=== PATIENT | female | born 1985 | race Caucasian/White ===

== ENCOUNTER 2018-12-27 11:02 | Emergency (ER) | payer MEDICAID ==
[~2018-12-27] VITALS: Ht 160 cm; Wt 60.0 kg
[~2018-12-27 11:02] MED LIST: CLIN-96 PO; CLIN150C8 PO; CLON-529 PO; DIAZ10TA PO; VAL5T PO
[2018-12-27] MEDS ORDERED: methylnaltrexone br 12mg/0.6ml inj***SubQ only SQ ONE (13:25)
[2018-12-27] MEDS ORDERED: magnesium citrate 296ml oral solution PO ONE (13:25)
[2018-12-27] MEDS ORDERED: normal saline 1000ML IV soln IVB ONE (13:25)
[2018-12-27] MEDS ORDERED: bisacodyl 10mg suppository rectal RC ONE (13:25)
[2018-12-27 13:49] LABS: URINE HCG NEGATIVE (NEG)
[2018-12-27 14:20] LABS: ALANINE AMINOTRANSFERASE 53 U/L (12-78); ALBUMIN 3.6 G/DL (3.4-5.0); ALKALINE PHOSPHATASE 51 IU/L (46-116); ANION GAP 6 (8-16); BILIRUBIN,TOTAL 0.3 MG/DL (0.1-1.0); BLOOD UREA NITROGEN 11 MG/DL (7-18); BUN/CREATININE RATIO 13.9 (6.6-38.0); CALCIUM 9.2 MG/DL (8.5-10.1); CHLORIDE 104 MMOL/L (99-107); CREATININE 0.79 MG/DL (0.40-0.90); GLUCOSE 79 MG/DL (70-104); SODIUM 139 MMOL/L (135-145); TOTAL CARBON DIOXIDE 28.9 MMOL/L (24-32); TOTAL PROTEIN 7.1 G/DL (6.4-8.2); eGFR 83 ML/MIN
[2018-12-27 14:21] LABS: ASPARTATE AMINO TRANSFERASE 48 U/L (10-37); POTASSIUM 4.6 MMOL/L (3.5-5.1)
[2018-12-27 15:19] VITALS: BP 94/56
[2018-12-27 15:37] LABS: BASOPHILS % (AUTO) 0.3 % (0-1); EOSINOPHILS # (AUTO) 0.3 X10'3 (0-0.9); EOSINOPHILS % (AUTO) 3.5 % (0-6); HEMATOCRIT 37.7 % (35.0-45.0); HEMOGLOBIN 12.5 g/dl (12.0-16.0); LYMPHOCYTES # (AUTO) 2.5 X10'3 (1.1-4.8); LYMPHOCYTES % (AUTO) 33.3 % (21-51); MEAN CORPUSCULAR HEMOGLOBIN 29.9 PG (27.0-31.0); MEAN CORPUSCULAR HGB CONC 33.1 g/dL (33.0-36.5); MEAN CORPUSCULAR VOLUME 90.4 FL (78-98); MEAN PLATELET VOLUME 9.4 FL (7.4-10.4); MONOCYTES # (AUTO) 0.6 X10'3 (0-0.9); MONOCYTES % (AUTO) 7.6 % (2-12); NEUTROPHILS # (AUTO) 4.2 X10'3 (1.8-7.7); NEUTROPHILS % (AUTO) 55.3 % (42-75); PLATELET COUNT 183 X10'3 (140-440); RED BLOOD COUNT 4.17 X10'6 (4.20-5.60); RED CELL DISTRIBUTION WIDTH 13.1 % (11.5-14.5); WHITE BLOOD COUNT 7.5 X10'3 (4.5-11.0)
[2018-12-27] MEDS ORDERED: ondansetron 4mg rapidly disintigrating tab PO ONE (17:00)
== END 2018-12-27 17:58 | disposition home or self-care (01) ==
LOC: ER 11:03
DX: K59.00 Constipation, unspecified (principal); R10.84 Generalized abdominal pain; F11.90 Opioid use, unspecified, uncomplicated; Z87.442 Personal history of urinary calculi; Z56.0 Unemployment, unspecified; Z91.013 Allergy to seafood; Z88.2 Allergy status to sulfonamides; Z88.8 Allergy status to other drugs, medicaments and biological substances; Z79.899 Other long term (current) drug therapy
CPT/HCPCS: 36415; 74018; 80053; 81025; 85025; 96360; 96372; 99284; J7030

== ENCOUNTER 2019-06-11 13:13 | Emergency (ER) | payer MEDICAID ==
[~2019-06-11] VITALS: Ht 160 cm; Wt 54.5 kg
[~2019-06-11 13:13] MED LIST changes: +LIDOcaine 1% W/epiNEPHrine 1:100,000 20ml vial ONE
[2019-06-11 13:52] VITALS: BP 126/88
[2019-06-11] MEDS ORDERED: CLIN150C8 PO (14:39)
== END 2019-06-11 15:08 | disposition home or self-care (01) ==
LOC: ER 13:14
DX: S60.111A Contusion of right thumb with damage to nail, initial encounter (principal); L03.011 Cellulitis of right finger; F41.9 Anxiety disorder, unspecified; F32.9 Major depressive disorder, single episode, unspecified; F10.99 Alcohol use, unspecified with unspecified alcohol-induced disorder; F11.90 Opioid use, unspecified, uncomplicated; Z87.442 Personal history of urinary calculi; Z56.0 Unemployment, unspecified; Z88.2 Allergy status to sulfonamides; Z91.013 Allergy to seafood; Z88.8 Allergy status to other drugs, medicaments and biological substances; Z79.899 Other long term (current) drug therapy; X58.XXXA Exposure to other specified factors, initial encounter; Y93.89 Activity, other specified; Y92.89 Other specified places as the place of occurrence of the external cause; Y99.8 Other external cause status; Y90.9 Presence of alcohol in blood, level not specified
CPT/HCPCS: 11740; 99283

== ENCOUNTER → 2020-10-10 | Emergency (ER) | payer MEDICAID ==
[~2020-10-10] VITALS: Ht 160 cm; Wt 52.5 kg
[~2020-10-10] MED LIST changes: -CLIN-96 PO; +CLIN-97 PO; +HYDR-4353 PO; +HYDROcodone/acetaminophen 10/325mg tab PO ONE; +IBUP-1986 PO; -LIDOcaine 1% W/epiNEPHrine 1:100,000 20ml vial ONE; +LIDOcaine 1% W/epiNEPHrine 1:100,000 20ml vial SQ ONE; +ketorolac trometh inj. 60 MG/2 ML VIAL IM ONE
--- NOTE | 2020-10-10 19:42 | NUR ---
Dr. Martin at bedside, removed C collar
[2020-10-10 21:12] VITALS: BP 112/70
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
== END | disposition home or self-care (01) ==
LOC: ER 23:37
DX: S02.602A Fracture of unspecified part of body of left mandible, initial encounter for closed fracture (principal); S02.601A Fracture of unspecified part of body of right mandible, initial encounter for closed fracture; S01.81XA Laceration without foreign body of other part of head, initial encounter; F11.90 Opioid use, unspecified, uncomplicated; Z87.442 Personal history of urinary calculi; Z87.11 Personal history of peptic ulcer disease; Z72.89 Other problems related to lifestyle; Z56.0 Unemployment, unspecified; Z88.2 Allergy status to sulfonamides; Z88.8 Allergy status to other drugs, medicaments and biological substances; Z91.013 Allergy to seafood; Z79.2 Long term (current) use of antibiotics; Z79.899 Other long term (current) drug therapy; W01.0XXA Fall on same level from slipping, tripping and stumbling without subsequent striking against object, initial encounter; Z91.81 History of falling; Y93.01 Activity, walking, marching and hiking; Y93.89 Activity, other specified; Y92.89 Other specified places as the place of occurrence of the external cause; Y99.8 Other external cause status
CPT/HCPCS: 12011; 70486; 96372; 99284; J1885

== ENCOUNTER 2021-09-13 17:14 | Emergency (ER) | payer MEDICAID ==
[~2021-09-13 17:14] MED LIST changes: +DIAZ5TAB22 PO; -HYDR-4353 PO; -HYDROcodone/acetaminophen 10/325mg tab PO ONE; -LIDOcaine 1% W/epiNEPHrine 1:100,000 20ml vial SQ ONE; -VAL5T PO; -ketorolac trometh inj. 60 MG/2 ML VIAL IM ONE
== END 2021-09-13 19:49 | disposition left against medical advice (07) ==
LOC: ER 17:14
DX: R11.10 Vomiting, unspecified (principal); K59.00 Constipation, unspecified; Z53.21 Procedure and treatment not carried out due to patient leaving prior to being seen by health care provider

== ENCOUNTER 2022-10-07 06:58 | Emergency (ER) | payer MEDICAID ==
[~2022-10-07] VITALS: Ht 160 cm; Wt 50.0 kg
[2022-10-07 08:04] LABS: CLARITY,URINE SLIGHTLY CLOUDY (Clear); COLOR,URINE YELLOW (Yellow); GLUCOSE, URINE NEGATIVE (Neg); KETONES,URINE NEGATIVE (Neg); LEUKOCYTE ESTERASE ,URINE LARGE (Neg); NITRITES, URINE POSITIVE (Neg); OCCULT BLOOD,URINE SMALL (Neg); PROTEIN,URINE NEGATIVE (Neg)
[2022-10-07 08:05] LABS: UA COLLECTION TYPE CLN CATCH MIDSTREAM; URINE HCG NEGATIVE (NEG)
[2022-10-07 08:11] LABS: MUCUS STRANDS FEW /LPF (Neg); SQUAMOUS EPITHELIAL CELL,UR MODERATE /LPF (FEW)
[2022-10-07 08:13] LABS: WBC CLUMPS,URINE MODERATE /HPF (NEGATIVE); WBC,URINE TNTC /HPF (0-4)
[2022-10-07 08:14] LABS: BACTERIA,URINE 3+ /HPF (Neg)
[2022-10-07] MEDS ORDERED: cephalexin 500mg capsule PO ONE (09:25)
[2022-10-07] MEDS ORDERED: CEPH-585 PO (09:33)
[2022-10-07 09:39] VITALS: BP 127/83
== END 2022-10-07 09:45 | disposition home or self-care (01) ==
LOC: ER 06:58
DX: F31.9 Bipolar disorder, unspecified (principal); N39.0 Urinary tract infection, site not specified; Z56.0 Unemployment, unspecified; Z87.442 Personal history of urinary calculi; Z91.013 Allergy to seafood; Z88.2 Allergy status to sulfonamides; Z88.5 Allergy status to narcotic agent; Z79.899 Other long term (current) drug therapy; Z79.1 Long term (current) use of non-steroidal anti-inflammatories (NSAID); Z79.2 Long term (current) use of antibiotics
CPT/HCPCS: 81001; 81025; 87077; 87088; 87186; 99283

== ENCOUNTER 2023-02-16 06:43 | Emergency (ER) | payer MEDICAID ==
[~2023-02-16] VITALS: Ht 160 cm; Wt 52.0 kg
[~2023-02-16 06:43] MED LIST changes: +CEPH-585 PO
[2023-02-16] MEDS ORDERED: ondansetron/PF 4mg/2ml inj IV ONE (07:55)
[2023-02-16] MEDS ORDERED: normal saline 1000ML IV soln IVB ONE (07:55)
[2023-02-16] MEDS ORDERED: morphine 4 MG/ML inj SYRINge IV PRN (07:55)
[2023-02-16 08:36] LABS: CLARITY,URINE SLIGHTLY CLOUDY (Clear); COLOR,URINE YELLOW (Yellow); GLUCOSE, URINE NEGATIVE (Neg); KETONES,URINE NEGATIVE (Neg); LEUKOCYTE ESTERASE ,URINE NEGATIVE (Neg); NITRITES, URINE NEGATIVE (Neg); OCCULT BLOOD,URINE NEGATIVE (Neg); PROTEIN,URINE TRACE mg/dl (Neg)
[2023-02-16 08:37] LABS: URINE HCG NEGATIVE (NEG)
[2023-02-16 08:40] LABS: UA COLLECTION TYPE CLN CATCH MIDSTREAM
[2023-02-16 08:43] LABS: MUCUS STRANDS MODERATE /LPF (Neg); SQUAMOUS EPITHELIAL CELL,UR FEW /LPF (FEW)
[2023-02-16 08:51] LABS: WBC,URINE 30-50 /HPF (0-4)
[2023-02-16 08:52] LABS: RBC,URINE NONE SEEN /HPF (0-2)
[2023-02-16 08:53] LABS: BACTERIA,URINE 2+ /HPF (Neg)
[2023-02-16 09:08] LABS: ALANINE AMINOTRANSFERASE 31 U/L (12-78); ALBUMIN/GLOBULIN RATIO 0.9 (1.1-1.5); ALKALINE PHOSPHATASE 71 IU/L (46-116); ANION GAP 8 (8-16); ASPARTATE AMINO TRANSFERASE 21 U/L (10-37); BILIRUBIN,TOTAL 0.3 MG/DL (0.1-1.0); BLOOD UREA NITROGEN 19 MG/DL (7-18); BUN/CREATININE RATIO 21.6 (10.0-20.0); CALCIUM 9.2 MG/DL (8.5-10.1); CHLORIDE 102 MMOL/L (99-107); CREATININE 0.88 MG/DL (0.40-0.90); GLUCOSE 104 MG/DL (70-104); LIPASE 66 U/L (73-393); POTASSIUM 3.9 MMOL/L (3.5-5.1); SODIUM 136 MMOL/L (135-145); TOTAL PROTEIN 8.4 G/DL (6.4-8.2); eGFR 72 ML/MIN
[2023-02-16 09:35] LABS: BASOPHILS % (AUTO) 0.2 % (0-1); EOSINOPHILS % (AUTO) 0.3 % (0-6); HEMATOCRIT 40.1 % (35.0-45.0); HEMOGLOBIN 13.3 g/dl (12.0-16.0); LYMPHOCYTES # (AUTO) 1.6 X10'3 (1.1-4.8); LYMPHOCYTES % (AUTO) 20.3 % (21-51); MEAN CORPUSCULAR HEMOGLOBIN 29.4 PG (27.0-31.0); MEAN CORPUSCULAR HGB CONC 33.3 g/dL (33.0-36.5); MEAN CORPUSCULAR VOLUME 88.4 FL (78-98); MEAN PLATELET VOLUME 8.8 FL (7.4-10.4); MONOCYTES % (AUTO) 12.1 % (2-12); NEUTROPHILS # (AUTO) 5.4 X10'3 (1.8-7.7); NEUTROPHILS % (AUTO) 67.1 % (42-75); PLATELET COUNT 255 X10'3 (140-440); RED BLOOD COUNT 4.53 X10'6 (4.20-5.60); RED CELL DISTRIBUTION WIDTH 13.1 % (11.5-14.5)
[2023-02-16] MEDS ORDERED: CefTRIAXone/D5W-Rocephin 1gm 50 ML IV ONE (09:40)
[2023-02-16] MEDS ORDERED: METR-159 PO (10:25)
[2023-02-16] MEDS ORDERED: CEPH-585 PO (10:25)
[2023-02-16 11:59] VITALS: BP 137/87
== END 2023-02-16 12:03 | disposition home or self-care (01) ==
LOC: ER 06:44
DX: N12 Tubulo-interstitial nephritis, not specified as acute or chronic (principal); N76.0 Acute vaginitis; Z88.2 Allergy status to sulfonamides; Z91.013 Allergy to seafood; Z56.0 Unemployment, unspecified
CPT/HCPCS: 36415; 74176; 80053; 81001; 81025; 83690; 85025; 87077; 87088; 87186; 96361; 96365; 96375; 99285; J0696; J2270; J2405; J7030

== ENCOUNTER 2025-01-27 08:27 | Outpatient (CLI) | payer MEDICAID ==
[~2025-01-27 08:27] MED LIST changes: -CEPH-585 PO; +CLIN-214 PO; -CLIN150C8 PO; +DIAZ-546 PO; -DIAZ10TA PO
--- NOTE | 2025-01-27 09:05 | ELECTROCARDIOGRAPH REPORT ---
[facility], [place] Test Date: 2025-01-27 Test Time: 08:49:42 Pat Name: PAL JOE Department: PRE/OP CARDIOLOGY [id number] Room: Gender: F Director Teen Post: NELA : 1985 Requested By: OSMAN BANG Order Number: [id number] Reading MD: Dr. Jose Josue Measurements Intervals [place] Rate: 83 P: 62 [place]: 141 QRS: -4 QRSD: 88 T: 55 QT: 412 QTc: 485 Interpretive Statements Sinus rhythm Abnormal R-wave progression, delayed precordial transition Electronically Signed On 01-28-2025 9:42:[address] oJse Josue Please click the below link to view image of tracing.
== END 2025-01-27 23:59 | disposition home or self-care (01) ==
LOC: RAD 08:27
PROVIDERS: ATTEND Psychiatry & Neurology Psychiatry
DX: R94.31 Abnormal electrocardiogram [ECG] [EKG] (principal); F41.1 Generalized anxiety disorder; F43.10 Post-traumatic stress disorder, unspecified; F42.9 Obsessive-compulsive disorder, unspecified; F15.20 Other stimulant dependence, uncomplicated; F90.0 Attention-deficit hyperactivity disorder, predominantly inattentive type
CPT/HCPCS: 93005